=== PATIENT | female | born 1940 | race Caucasian/White ===

== ENCOUNTER → 2018-07-16 | Outpatient (REF) | payer MEDICARE ==
[~2018-07-16] MED LIST: BUPROPION100 MG PO; CARDIZEM CD 180 PO; CLONIDINE0.1 MG PO; COZAAR100 MG PO; ESCITALOPRAM OX10 MG PO; LABETALOL200 MG PO; LEXAPRO10 MG PO; LOSARTAN POT50 MG PO; PERCOCET 10/31 COMBO PO; VITAMIN D2000 UNI2 PO; VITAMIN D32000 UNIT PO; WELLBUTRIN SR150 MG PO; WELLBUTRIN100 M2 PO
[2018-07-16 08:56] LABS: CREATININE 1.3 mg/dL (0.5-1.0); POTASSIUM 3.9 mmol/l (3.5-5.1)
== END | disposition home or self-care (01) ==
LOC: LAB 08:12
PROVIDERS: ATTEND Internal Medicine
DX: E87.5 Hyperkalemia (principal); I10 Essential (primary) hypertension

== ENCOUNTER 2020-04-20 16:17 | Observation (INO) | payer MEDICARE ==
[~2020-04-20] VITALS: Ht 162.6 cm; Wt 99.0 kg
[~2020-04-20 16:17] MED LIST changes: -CARDIZEM CD 180 PO; +CARDIZEM CD240 MG PO; +ELIQUIS5 MG PO; +FLUOXETINE20 MG PO; +HYDROCHLOROT25 MG PO; +KEFLEX500 MG PO; +PROAIR HFA108 MCG/AC IN; +TRELEGY ELLIPTA1 AER IN; +ULTRAM50 M1 PO; +WELLBUTRIN XL300 MG PO; -WELLBUTRIN100 M2 PO
--- NOTE | 2020-04-20 16:33 | NUR ---
DIRECTLY TO RM 14 VIA STRETCHER WITH EMS. PT ALERT, RESPONDING APPROPRIATELY
--- NOTE | 2020-04-20 17:15 | NUR ---
PT RESTING AWARE OF BUSY ER AND WAITTIMES, VERBALIZES UNDERSTANDING, SPOUSE AT BEDSIDE
[2020-04-20 17:59] LABS: HEMATOCRIT 37.2 % (37.0-47.0); IMMATURE GRANULOCYTES 0.5 % (0.0-5.0); MEAN CELL VOLUME 95.4 fL CALC (80.0-100.0); MEAN CORPUSCULAR HGB 30.8 pG CALC (26.0-32.0); MEAN CORPUSCULAR HGB CONC 32.3 g/dL CAL (32.0-36.0); NEUT# 7.77 thou/uL (2.00-7.15); RED BLOOD COUNT 3.9 mill/uL (4.20-5.60); RED CELL DISTRI WIDTH 12.7 % (11.5-15.5)
--- NOTE | 2020-04-20 18:15 | NUR ---
PT AWARE OF AWAITING LAB RESULTS AND PLANNED CT SCAN, OFFERS NO NEW COMPLAINTS
[2020-04-20 18:24] LABS: ALBUMIN 3.7 g/dL (3.2-5.0); ALKALINE PHOSPHATASE 67 u/l (38-126); ANION GAP 9 (6-22 (CALC)); BILIRUBIN, TOTAL 0.5 mg/dL (0.0-1.4); BUN 22 mg/dL (8-23); BUN/CREATININE RATIO 16 (12-20 (CALC)); CARBON DIOXIDE 29 mmol/l (22-30); CHLORIDE 100 mmol/l (95-108); CREATININE 1.3 mg/dL (0.5-1.0); GFR 39 ML/MIN (>=60 (CALC)); GFR FOR AFR.AMER. 48 ML/MIN (>=60 (CALC)); POTASSIUM 3.3 mmol/l (3.5-5.1); SGOT/AST 29 u/l (9-36); SODIUM 135 mmol/l (137-146); TOTAL PROTEIN 6.4 g/dL (6.3-8.2)
--- NOTE | 2020-04-20 18:48 | NUR ---
EKG COMPLETED, AND PT EN ROUTE TO CT SCAN, SPOUSE REMAINS AT BEDSIDE
[2020-04-20] MEDS ORDERED: TRAMADOL HCL50 MG PO (18:56)
--- NOTE | 2020-04-20 19:28 | NUR ---
ASSUMED CARE. AT BEDSIDE
--- NOTE | 2020-04-20 19:37 | NUR ---
PORTABLE XRAY COMPLETE
--- NOTE | 2020-04-20 20:37 | NUR ---
FLU AND COVID TESTING DONE PER DR WOODY. TOLERATED WELL. ADVISED OF CONT WAIT VERBALIZED UNDERSTANDING. DENIES ANY NEEDS
--- NOTE | 2020-04-20 21:02 | NUR ---
PT UP TO BR TO VOID. WITH ASSIST. USUALLY USES A WALKER OR CANE. RETURNED TO ROOM. URINE SENT. VSS. BLANKET GIVEN.
[2020-04-20 21:35] LABS: URINE BILIRUBIN - DIPSTICK NEGATIVE (NEGATIVE); URINE BLOOD DIPSTICK LARGE (NEGATIVE); URINE COLOR YELLOW; URINE GLUCOSE - DIPSTICK NEGATIVE (NEGATIVE); URINE KETONE NEGATIVE (NEGATIVE); URINE LEUK ESTERASE NEGATIVE (NEGATIVE); URINE PROTEIN - DIPSTICK TRACE mg/dL (NEG-TRACE); URINE SPECIFIC GRAVITY 1.025; URINE UROBILINOGEN - DIPSTICK 0.2 E.U./dL (0.2)
[2020-04-20 21:46] LABS: URINE NITRITE - DIPSTICK POSITIVE (Negative)
[2020-04-20 21:54] LABS: URINE BACTERIA FEW hpf; URINE SQUAMOUS EPITHELIAL CELL FEW EPI/hpf (0-FEW)
--- NOTE | 2020-04-21 03:48 | NUR ---
PT UP TO BR WITH ASSIST. GAIT UNSTEADY. RETURNED TO BR WITH ASSIST. PAD CHANGED.
[2020-04-21 03:59] LABS: HEMATOCRIT 36.8 % (37.0-47.0); HEMOGLOBIN 11.7 g/dl (12.0-16.0); IMMATURE GRANULOCYTES 0.3 % (0.0-5.0); MEAN CELL VOLUME 96.1 fL CALC (80.0-100.0); MEAN CORPUSCULAR HGB 30.5 pG CALC (26.0-32.0); MEAN CORPUSCULAR HGB CONC 31.8 g/dL CAL (32.0-36.0); NEUT# 5.31 thou/uL (2.00-7.15); RED BLOOD COUNT 3.83 mill/uL (4.20-5.60); RED CELL DISTRI WIDTH 12.8 % (11.5-15.5)
[2020-04-21 04:15] LABS: ALBUMIN 3.4 g/dL (3.2-5.0); BILIRUBIN, TOTAL 0.5 mg/dL (0.0-1.4); CREATININE 1.4 mg/dL (0.5-1.0); POTASSIUM 3.3 mmol/l (3.5-5.1); TOTAL PROTEIN 5.6 g/dL (6.3-8.2)
[2020-04-21 06:08] VITALS: BP 112/53
--- NOTE | 2020-04-21 07:17 | NUR ---
PT RESTING. VSS. REPORT TO ONCOMING SHIFT.
--- NOTE | 2020-04-21 10:25 | NUR ---
DR. RANGEL TO BEDSIDE TO DISCUSS FINDINGS AND PLAN OF CARE
--- NOTE | 2020-04-21 11:10 | NUR ---
RESTING QUIETLY. CALL JAMES IN REACH. BED IN LOW POSITIONN.
--- NOTE | 2020-04-21 12:33 | NUR ---
REPORT CALLED TO GEORGE HERNANDEZ IN SBAR FORMAT.
[2020-04-21 13:00] VITALS: BP 107/64
--- NOTE | 2020-04-21 13:00 | NUR ---
PT ARRIVED TO MED/SURG ROOM 261 IN STABLE CONDITION VIA STRETCHER ACCOMPANIED BY AFTAB REYNOSO;PT AMBULATED TO RESTROOM AND BEDSIDE WITH A WEAK GAIT AND 1 PERSON ASSIST;PT A&O X3, ORIENTED TO ROOM AND CALL LIGHT SYSTEM;PT DENIES ANY CURRENT PAIN OR DISCOMFORTS,PAIN SCALE AND REPORTING EDUCATED;RESPIRATIONS EVEN AND UNLABORED ON RA,CLEAR LUNG SOUNDS NOTED;ABDOMEN SOFT ON PALPATION AND ACTIVE IN ALL 4 QUADRANTS,LAST BM 04/19/20;WEAK PEDAL PULSES;SKIN INTACT;#18G TO LAC INFUSING NS @ 100ML/HR,SITE APPEARS HEATHLY;HOME MEDICATIONS SENT TO PHARMACY AT THIS TIME;FRESH WATER PROVIDED PER REQUEST;PT DENIES ANY ADDITIONAL NEEDS AND IS ENCOURAGED TO CALL FOR ASSISTANCE IF NEEDED;FALL PRECAUTIONS IN PLACE WITH BED IN THE LOWEST POSITION AND CALL LIGHT IN REACH;WILL CONTINUE TO MONITOR
--- NOTE | 2020-04-21 13:00 | NUR ---
PATIENT TRSNSFERRED TO MS 261 VIA WC. STABLE UPON ARRIVAL. IV SITE HEALTHY.
--- NOTE | 2020-04-21 15:35 | NUR ---
PT APPEARS TO BE SLEEPING IN SEMI FOWLERS POSITION;RESPIRATIONS EVEN AND UNLABORED ON RA;PT DENIES ANY CURRENT PAIN OR DISCOMFORTS;IV FLUIDS INFUSING WITH EASE PER ORDER;ASSESSMENT REMAINS UNCHANGED AT THIS TIME AND IS ENCOURAGED TO CALL FOR ASSISTANCE IF NEEDED;FALL PRECAUTIONS IN PLACE WITH CALL LIGHT IN REACH;WILL CONTINUE TO MONITOR
[2020-04-21 15:49] VITALS: BP 109/62
[2020-04-21 18:30] VITALS: BP 121/62
--- NOTE | 2020-04-21 19:05 | NUR ---
REPORT FROM GEORGE HERNANDEZ. PT NOTED RESTING IN BED WITH EYES CLOSED. NO APPARENT DISTRESS NOTED. RESPIRATIONS EVEN AND UNLABORED. IV SITE APPEARS HEALTHY WITH IVF INFUSING. PT WAKES EASILY AND DENIES ANY PAIN OR DISCOMFORT. CALL LIGHT WITHIN REACH. WILL CONTINUE TO MONITOR.
--- NOTE | 2020-04-21 23:50 | NUR ---
ASSIST PT TO BATHROOM. PT VOIDED WITHOUT DIFFICULTY. NO APPARENT DISTRESS NOTED. BACK INTO BED. IV ABT INITIATED. IV SITE APPEARS HEALTHY. PT DENIES ANY PAIN OR DISCOMFORT AT THIS TIME. CALL LIGHT WITHIN REACH. WILL CONTINUE TO MONITOR.
--- NOTE | 2020-04-22 03:15 | NUR ---
PT RESTING IN BED WITH EYES CLOSED. NO APPARENT DISTRESS NOTED. RESPIRATIONS EVEN AND UNLABORED. IV FLUIDS INFUSING WITHOUT DIFFICULTY. CALL LIGHT WITHIN REACH. WILL CONTINUE TO MONITOR.
[2020-04-22 03:20] VITALS: BP 116/67
[2020-04-22 07:45] VITALS: BP 143/58; BP 144/74
--- NOTE | 2020-04-22 07:45 | NUR ---
ASSESSMENT IS COMPLETED: IV SITE IS FREE FROM REDNESS OR EDEMA. HR IS REG,PULSES ARE STRONG X4, ABD IS SOFT WITH ACTIVE BS. CONTINUE TO OSBERVE AND MONITOR.
[2020-04-22 08:36] VITALS: BP 143/58
[2020-04-22] MEDS ORDERED: KEFLEX500 MG PO (09:34)
--- NOTE | 2020-04-22 11:06 | NUR ---
IV SITE DISCONTINUED CATHETER INTACT. NO REDNESS OR EDEMA. DISCHARGE INSTRUCTIONS GIVEN AND VERBALIZED UNDERSTANDING
--- NOTE | 2020-04-22 11:37 | NUR ---
PT TRANSPORTED TO BE DISCHARGED DOWNSTAIRS WITH FAMILY ALL BELONGINGS AND MEDS GIVEN . Discharge instructions given. Patient verbalizes understanding of same. Discharged in stable condition via Wheelchair to Home with family. All belongings sent with pt.
== END 2020-04-22 11:34 | disposition home or self-care (01) ==
LOC: ED 16:17 → ED-I 21:17 → ED 21:31 → ED-I 21:32 → MS2 04-21 11:55
PROVIDERS: Family Medicine; ADMIT Internal Medicine; ATTEND Internal Medicine
DX: N30.90 Cystitis, unspecified without hematuria (principal); E86.0 Dehydration; K80.20 Calculus of gallbladder without cholecystitis without obstruction; I12.9 Hypertensive chronic kidney disease with stage 1 through stage 4 chronic kidney disease, or unspecified chronic kidney disease; N18.9 Chronic kidney disease, unspecified; F41.9 Anxiety disorder, unspecified; J44.9 Chronic obstructive pulmonary disease, unspecified; B96.20 Unspecified Escherichia coli [E. coli] as the cause of diseases classified elsewhere; Z79.01 Long term (current) use of anticoagulants; Z86.711 Personal history of pulmonary embolism; Z20.828 Contact with and (suspected) exposure to other viral communicable diseases
CPT/HCPCS: Q9967

== ENCOUNTER 2020-12-24 11:49 | Emergency (ER) | payer MEDICARE ==
[~2020-12-24] VITALS: Ht 160 cm; Wt 100.0 kg
[~2020-12-24 11:49] MED LIST changes: +TRAMADOL HCL50 MG PO
[2020-12-24 11:50] VITALS: BP 140/65
[2020-12-24 12:41] LABS: HEMATOCRIT 41.4 % (37.0-47.0); HEMOGLOBIN 13.3 g/dl (12.0-16.0); IMMATURE GRANULOCYTES 0.4 % (0.0-5.0); MEAN CELL VOLUME 96.3 fL CALC (80.0-100.0); MEAN CORPUSCULAR HGB 30.9 pG CALC (26.0-32.0); MEAN CORPUSCULAR HGB CONC 32.1 g/dL CAL (32.0-36.0); NEUT# 2.8 thou/uL (2.00-7.15); RED BLOOD COUNT 4.3 mill/uL (4.20-5.60); RED CELL DISTRI WIDTH 12.3 % (11.5-15.5)
[2020-12-24 12:51] LABS: ALBUMIN 3.7 g/dL (3.2-5.0); ALKALINE PHOSPHATASE 68 u/l (38-126); ANION GAP 13 (6-22 (CALC)); BILIRUBIN, TOTAL 0.5 mg/dL (0.0-1.4); BUN 23 mg/dL (8-23); BUN/CREATININE RATIO 19 (12-20 (CALC)); CARBON DIOXIDE 29 mmol/l (22-30); CHLORIDE 97 mmol/l (95-108); CREATININE 1.3 mg/dL (0.5-1.0); GFR 39 ML/MIN (>=60 (CALC)); GFR FOR AFR.AMER. 47 ML/MIN (>=60 (CALC)); MAGNESIUM 2.2 mg/dL (1.6-2.3); SGOT/AST 21 u/l (9-36); SODIUM 135 mmol/l (137-146); TOTAL PROTEIN 6.9 g/dL (6.3-8.2)
[2020-12-24 12:57] LABS: ACT PARTIAL THROMBO TIME 28.5 SECONDS (20.0-32.5); INTERNATIONAL NORMALIZED RATIO 1.1 RATIO (0.7-1.3); PROTHROMBIN TIME 11.1 SECONDS (9.0-12.5)
== END 2020-12-24 16:00 | disposition short-term general hospital (02) ==
LOC: ED 11:49
DX: M21.371 Foot drop, right foot (principal); M54.5 Low back pain; I10 Essential (primary) hypertension

== ENCOUNTER 2024-06-06 20:31 | Emergency (ER) | payer MEDICARE ==
[~2024-06-06] VITALS: Ht 160 cm; Wt 105.7 kg
[2024-06-06 21:14] VITALS: BP 107/80
[2024-06-06 21:15] VITALS: BP 110/68
[2024-06-06] MEDS ORDERED: IPRATROPIUM-Albuterol 0.5MG-2.5MG/3 ML NEB ONE (21:20)
[2024-06-06] MEDS ORDERED: ALBUTEROL SULFATE 2.5 MG VIAL IN ONE (21:20)
[2024-06-06] MEDS ORDERED: methylPREDNISolone SODIUM SUCC 125 MG/2 ML SDV IV ONE (21:20)
[2024-06-06 21:45] LABS: BASO% 0.2 % (0-3); EOS% 0.9 % (0-8); HEMOGLOBIN 12.9 g/dl (12.0-16.0); IMMATURE GRANULOCYTES 1.7 % (0.0-5.0); LYMPH% 16.9 % (15-41); MEAN CELL VOLUME 92.6 fL CALC (80.0-100.0); MEAN CORPUSCULAR HGB 29.9 pG CALC (26.0-32.0); MEAN CORPUSCULAR HGB CONC 32.3 g/dL CAL (32.0-36.0); NEUT# 5.94 thou/uL (2.00-7.15); NEUT% 69.3 % (42-76); RED BLOOD COUNT 4.32 mill/uL (4.20-5.60); RED CELL DISTRI WIDTH 12.7 % (11.5-15.5)
[2024-06-07] VITALS: BP 117/60
[2024-06-07] MEDS ORDERED: VENTOLIN HFA IN (00:18)
[2024-06-07] MEDS ORDERED: PREDNISONE50 MG PO (00:18)
== END 2024-06-07 05:58 | disposition home or self-care (01) ==
LOC: ED 20:31
PROVIDERS: Family Medicine
DX: J40 Bronchitis, not specified as acute or chronic (principal); I10 Essential (primary) hypertension; Z20.822 Contact with and (suspected) exposure to COVID-19